=== PATIENT | male | born 1970 | race Hispanic/Latino ===

== ENCOUNTER 2018-08-15 22:23 | Emergency (ER) | payer SELFPAY ==
[~2018-08-15 22:23] MED LIST: Iopamidol 370 76% 100 ML VIAL ONE
[2018-08-15 23:25] LABS: ALT (SGPT) 20 U/L (8-55); AST (SGOT) 14 U/L (5-34); Albumin 3.8 g/dL (3.5-5.0); Alkaline Phosphatase 66 U/L (40-150); Anion Gap 16 mmol/L (10-20); BUN (Urea Nitrogen) 16 mg/dL (8.9-20.6); Bilirubin, Total 0.2 mg/dL (0.2-1.2); Calc. Creatinine Clearance 0 mL/min (70-130); Calcium 8.6 mg/dL (7.8-10.44); Carbon Dioxide 24 mmol/L (22-29); Chloride 105 mmol/L (98-107); Estimated GFR-MDRD 84; Globulin 2.7 g/dL (2.4-3.5); Glucose 141 mg/dL (70-105); Potassium 4.1 mmol/L (3.5-5.1); Protein, Total 6.5 g/dL (6.0-8.3); Sodium 141 mmol/L (136-145)
[2018-08-15 23:31] LABS: Anisocytosis SLIGHT = 6-15 cells (100X) (0-5/hpf); Hemoglobin 9.5 g/dL (14.0-18.0); Hypochromia SLIGHT = 6-15 cells (100X) (0-5/hpf); Lymphocytes 12 % (21-51); MDiff Complete? YES; Mean Corpuscular HGB CONC 30.4 g/dL (32.0-36.0); Mean Corpuscular Hemoglobin 22.3 pg (27.0-31.0); Mean Corpuscular Volume 73.4 fL (78.0-98.0); Mean Platelet Volume 15.6 fL (7.4-10.4); Microcytosis SLIGHT = 6-15 cells (100X) (0-5/hpf); Monocytes 3 % (0-10); Neutrophil 84 % (42-75); Platelet Count 213 thou/uL (130-400); Platelet Morphology Comment Appears Adequate; Poikilocytosis SLIGHT = 6-15 cells (100X) (0-5/hpf); RBC Distribution Width 20.3 % (11.5-14.5); RBC Morphology Abnormal; Reactive Lymphocytes 1 % (0-10); Red Blood Cell (RBC) Count 4.25 mill/uL (4.70-6.10); White Blood Cell (WBC) Count 17.6 thou/uL (4.8-10.8)
[2018-08-15 23:33] LABS: PTT 26.7 SEC (22.9-36.1); Prothrombin Time 13.7 SEC (12.0-14.7)
[2018-08-16 00:36] LABS: Bilirubin Negative (Negative); Blood, Urine Moderate (Negative); Glucose, Urine (Dipstick) Negative (Negative); Leukocyte Negative (Negative); Nitrite Negative (Negative); Protein, Urine (Dipstick) 100 mg/dL (Neg-Trace); Urobilinogen 0.2 mg/dL (0.2-1.0)
[2018-08-16 00:43] LABS: Clarity Hazy (Clear)
[2018-08-16 00:44] LABS: Bacteria/HPF 1+ HPF (None Seen)
[2018-08-16] MEDS ORDERED: Loperamide HCl 2 MG CAP ONE (01:13)
[2018-08-16] MEDS ORDERED: Sodium Chloride 0.9% 1,000 ML ONE ×2 (01:13→01:39)
[2018-08-16 01:19] LABS: Hemoglobin 7.8 g/dL (14.0-18.0)
[2018-08-16] MEDS ORDERED: Pantoprazole 40 MG VIAL ONE (01:55)
--- NOTE | 2018-08-16 07:17 | CT ---
ABDOMEN AND PELVIS CT WITH CONTRAST: Date: 08/15/18 No prior comparison imaging. INDICATION: Abdominal pain with hematochezia, declining systolic blood pressure is recorded. FINDINGS: Visualized lung bases reveal no significant abnormality. Mild prominence of the retroareolar soft tis sues bilaterally. Correlate for evidence of mild gynecomastia. There is prior cholecystectomy noted. Small hypoattenuating focus of the posterior segment of right h epatic lobe is too small to definitively characterize. There is an exophytic cyst emanating from the lateral mid right renal cortex. There are numerous additional small hypodensities within each kidney, too small to definitively characterize. No adrenal mass. No pancreatic inflammation. Spleen is unrem arkable. The bowel is incompletely evaluated without the presence of enteric contrast. There is colon ic diverticulosis, most notable within the left hemicolon. Abdominal aorta is normal in caliber. No p eriaortic hematoma. No adenopathy. No retroperitoneal hemorrhage. No acute osseous abnormality. There is incompletely evaluated added intraluminal density at the distal stomach, expected region of pylor ic antrum. The possibility of an underlying mass cannot be excluded. Moderate fluid-filled distention of the more proximal stomach is present. IMPRESSION: 1. Limited evaluation of the bowel without enteric contrast. There is soft tissue prominence of the distal aspect of the gastric lumen, for which underlying mass is the diagnosis of exclusion. Recommen d follow-up gastroenterology consultation for endoscopy to further assess. 2. Colonic diverticulosis. 3. Additional findings are detailed above. POS: [facility]
== END 2018-08-16 03:33 | disposition short-term general hospital (02) ==
LOC: MADERS 22:23
DX: K64.9 Unspecified hemorrhoids (principal); N20.0 Calculus of kidney; I10 Essential (primary) hypertension; Z79.899 Other long term (current) drug therapy
CPT/HCPCS: 36430; 74177; 80053; 81003; 81015; 82274; 83605; 83630; 85018; 85025; 85610; 85730; 86850; 86900; 86901; 87045; 87046; 87081; 87328; 87329; 87449; 87899; 96361; 96374; 99292; C9113; J7050; P9016; Q9967